=== PATIENT | male | born 1955 | race Caucasian/White ===

== ENCOUNTER 2016-06-15 10:53 | Emergency (ER) | payer OTHER ==
[~2016-06-15] VITALS: Ht 175.3 cm; Wt 70.3 kg
[2016-06-15 10:58] VITALS: BP 132/85
[2016-06-15] MEDS ORDERED: PRILOSEC 20 MG20 MG PO (11:04)
[2016-06-15] MEDS ORDERED: NAPROSYN500 MG PO (12:19)
== END 2016-06-15 12:52 | disposition home or self-care (01) ==
LOC: ER 10:53
DX: S80.211A Abrasion, right knee, initial encounter (principal); V29.9XXA Motorcycle rider (driver) (passenger) injured in unspecified traffic accident, initial encounter; Y93.55 Activity, bike riding; Y92.89 Other specified places as the place of occurrence of the external cause; Y99.8 Other external cause status